=== PATIENT | female | born 1990 | race Caucasian/White ===

== ENCOUNTER → 2016-08-04 | Day surgery (SDC) | payer OTHER ==
[2016-07-29 09:50] LABS: BILIRUBIN NEGATIVE (NEGATIVE); BLOOD TRACE-INTACT (NEGATIVE); CLARITY CLOUDY (CLEAR); COLOR YELLOW (YELLOW); GLUCOSE NEGATIVE (NEGATIVE); KETONE NEGATIVE (NEGATIVE); LEUKO ESTERASE 2+ (NEGATIVE); NITRITE NEGATIVE (NEGATIVE); PH 5.5 (5.0-9.0); PROTEIN TRACE (NEGATIVE); SPECIFIC GRAVITY >= 1.030 (1.005-1.030); UROBILINOGEN 0.2 E.U./dl (0.2-1.0)
[2016-07-29 09:53] LABS: BASO # 0.1 10*3/uL (0.0-0.1); BASO % 0.9 % (0.0-1.0); EOS # 0.1 10*3/uL (0.0-0.4); HEMATOCRIT 41.2 % (37.0-47.0); HEMOGLOBIN 13.6 g/dl (12.0-16.0); LYMPH # 1.3 10*3/uL (1.3-4.4); LYMPH % 23.5 % (27.0-41.0); MEAN CELL VOLUME 91.8 fl (81.0-99.0); MEAN CORPUSCULAR HGB 30.3 pg (27.0-31.0); MONO # 0.8 10*3/uL (0.1-1.0); MONO % 14.8 % (3.0-9.0); NEUT # 3.3 10*3/uL (2.3-7.9); NEUT % 58.6 % (47.0-73.0); PLATELET COUNT AUTOMATED 293 10*3/uL (130-400); RED BLOOD COUNT 4.49 10*6/uL (4.10-5.10); RED CELL DISTRI WIDTH 12.7 % (0-14.5); WHITE BLOOD COUNT 5.6 10*3/uL (4.8-10.8)
[2016-07-29 10:12] LABS: BACTERIA 4+; EPITHELIAL CELLS 41-50; WBC 41-50 wbc/hpf (0-5)
[2016-07-29 10:18] LABS: ALBUMIN 3.6 gm/dl (3.1-4.5); BILIRUBIN, DIRECT < 0.1 mg/dL (0.0-0.2); BILIRUBIN, TOTAL 0.5 mg/dl (0.2-1.0); BUN 6 mg/dl (7-24); CARBON DIOXIDE 25 mmol/L (21-32); CHLORIDE 106 mmol/L (98-107); EST GLOM FILT AFRICAN AMERICAN > 60 ml/min; GLUCOSE 91 mg/dL (65-99); POTASSIUM 3.9 mmol/L (3.5-5.1); SGOT/AST 40 IU/L (3-35); SGPT/ALT 46 U/L (12-78); SODIUM 143 mmol/L (136-145); TOTAL PROTEIN 7.6 gm/dL (6.4-8.2)
[2016-07-29 10:20] LABS: ALKALINE PHOSPHATASE 90 U/L (45-117)
[2016-07-29 10:25] LABS: PROTHROMBIN TIME 10.2 SECONDS (9.0-12.4)
[2016-08-04] VITALS (9 sets, daily range): BP systolic 104–135; BP diastolic 51–66
[~2016-08-04] VITALS: Ht 154.9 cm; Wt 85.3 kg
[~2016-08-04] MED LIST: BACTRIM DS 8001 TA1 PO; BIRTH CONTROL; BIRTH CONTROL1 EAC1 PO; CIPRO500 MG PO; CLEOCIN150 MG PO; EMOQUETTE 0.151 TAB PO; FLAGYL500 MG PO; HYDROCODONE BIT1 T11 PO; MACROBID100 M1 PO; OMEPRAZOLE D/R20 MG PO; PYRIDIUM200 M1 PO; PYRIDIUM200 MG PO; SEPTRA DS 800 M1 TAB PO; SYNTHROID; SYNTHROID,LEVOTHROID PO; Synthroid,Levo25 MCG PO; TRAMADOL HCL50 MG PO; ULTRAM50 MG PO; [UNRECOGNIZED DRUG - OTHER] IL
--- NOTE | ~2016-08-04 | O ---
[place], [place] OPERATIVE NOTE NAME: [facility] [id number] UNIT #: [id number] ROOM: DOCTOR: CECILIO CHRISTIANSEN MD BIRTHDATE: [birth year] DOS: 08/04/2016 PREOPERATIVE DIAGNOSIS: Biliary dyskinesia. POSTOPERATIVE DIAGNOSIS: Biliary dyskinesia. PROCEDURE: Laparoscopic cholecystectomy. SURGEON: Cecilio Christiansen MD [employer] COORDINATOR: MS3. ANESTHESIA: General with endotracheal intubation. INDICATIONS: This is a 26-year-old lady with a history of symptomatic biliary dyskinesia, who is here for the above-mentioned procedure. The procedure and its complications were explained to the patient in detail preoperatively. Complications that were discussed included but were not limited to bleeding, infection, hematoma/seroma/abscess formation, prolonged postoperative pain, biloma formation and inadvertent injury to the common bile duct and incisional hernia formation. She agreed to proceed. DESCRIPTION OF PROCEDURE: After identifying the patient, the patient was brought to the operating suite and laid in the supine position. After induction of general anesthesia, timeout procedure was called and the parts were then painted and draped in the usual sterile fashion. An incision was made below the umbilicus in a transverse fashion of approximately 10 mm. The skin and the subcutaneous tissue were incised. The fascia was incised vertically and 2 stay sutures were taken with 0 Vicryl on either side. The peritoneum was opened and a 12 mm Kelsie port was introduced and a pneumoperitoneum was created. Under direct vision, an epigastric incision of 10 mm and two 5 mm incisions were made in the right upper quadrant and appropriate size ports were introduced. The gallbladder was then retracted superiorly and laterally. The cystic duct and the cystic artery were meticulously dissected; thereafter, each of these structures were clipped 3 times and cut between the first and the second clip. This was done after the critical view of safety was obtained and the triangle of Calot was identified. The gallbladder was then removed from the bed of the gallbladder with the help of electrocautery. It was placed in an EndoCatch bag and removed from the peritoneal cavity and sent for histopathological diagnosis. Thereafter, hemostasis was achieved in the liver bed, the irrigation fluid was sucked away. The right upper quadrant and the epigastric ports were then removed and there was no bleeding seen. The umbilical port was also removed and the 2 stay sutures were tied together and an additional 0 Vicryl stitch was taken to close the fascia. Thereafter, local anesthesia (1% plain lidocaine) was injected on all the 4 incisions and skin edges. The skin edges were then approximated with the help of 4-0 Vicryl in a subcuticular running fashion. Dressings were placed on all the 4 incisions and the patient was extubated and brought back to the recovery room in stable fashion. There were no complications. Dr. Cecilio Christiansen, the attending surgeon, was present throughout the operating case. [place], [place] OPERATIVE NOTE NAME: SACHI KRISHNAMURTHY UNIT #: [id number] ROOM: DOCTOR: CECILIO CHRISTIANSEN MD BIRTHDATE: [birth year] Cecilio Christiansen MD CM:OPRECORD:OPERATIVE NOTE [id number] CECILIO CHRISTIANSEN MD 08/04/16 0947 interface
== END | disposition home or self-care (01) ==
LOC: SDC 07-28 14:00
PROVIDERS: Surgery
DX: K80.10 Calculus of gallbladder with chronic cholecystitis without obstruction (principal); E07.9 Disorder of thyroid, unspecified

== ENCOUNTER 2016-11-09 11:33 | Emergency (ER) | payer OTHER ==
[~2016-11-09] VITALS: Wt 81.6 kg
[~2016-11-09 11:33] MED LIST changes: +NEXPLANON68 M2 SQ
[2016-11-09 11:35] VITALS: BP 120/75
== END 2016-11-09 12:29 | disposition home or self-care (01) ==
LOC: ED 11:33
DX: S61.212A Laceration without foreign body of right middle finger without damage to nail, initial encounter (principal); E03.9 Hypothyroidism, unspecified; Z79.899 Other long term (current) drug therapy; Z88.0 Allergy status to penicillin; Z88.8 Allergy status to other drugs, medicaments and biological substances; Z88.6 Allergy status to analgesic agent; W26.8XXA Contact with other sharp object(s), not elsewhere classified, initial encounter; Y93.89 Activity, other specified; Y92.098 Other place in other non-institutional residence as the place of occurrence of the external cause; Y99.9 Unspecified external cause status

== ENCOUNTER → 2018-12-18 | Outpatient (CLI) | payer OTHER | END | disposition home or self-care (01) | LOC: US 11-23 11:00 | DX: R10.2 Pelvic and perineal pain (principal) ==

== ENCOUNTER → 2019-04-18 | Outpatient (CLI) | payer OTHER ==
[2019-04-18 13:36] LABS: BASO # 0.1 10*3/uL (0.0-0.1); BASO % 0.6 % (0.0-1.0); EOS # 0.1 10*3/uL (0.0-0.4); EOS % 1.4 % (1.0-4.0); HEMATOCRIT 41.7 % (37.0-47.0); HEMOGLOBIN 13.6 g/dl (12.0-16.0); LYMPH # 1.9 10*3/uL (1.3-4.4); LYMPH % 24.9 % (27.0-41.0); MEAN CELL VOLUME 94.1 fl (81.0-99.0); MEAN CORPUSCULAR HGB 30.7 pg (27.0-31.0); MEAN CORPUSCULAR HGB CONC 32.6 g/dl (33.0-37.0); MEAN PLATELET VOLUME 10.3 fl (9.6-12.3); MONO # 0.8 10*3/uL (0.1-1.0); NEUT # 4.9 10*3/uL (2.3-7.9); NEUT % 62.8 % (47.0-73.0); PLATELET COUNT AUTOMATED 309 10*3/uL (130-400); RED BLOOD COUNT 4.43 10*6/uL (4.10-5.10); RED CELL DISTRI WIDTH 12.4 % (0-14.5); WHITE BLOOD COUNT 7.8 10*3/uL (4.8-10.8)
[2019-04-18 13:40] LABS: BILIRUBIN NEGATIVE (NEGATIVE); BLOOD NEGATIVE (NEGATIVE); CLARITY CLOUDY (CLEAR); COLOR YELLOW (YELLOW); GLUCOSE NEGATIVE (NEGATIVE); KETONE NEGATIVE (NEGATIVE); LEUKO ESTERASE 2+ (NEGATIVE); NITRITE NEGATIVE (NEGATIVE); SPECIFIC GRAVITY >= 1.030 (1.005-1.030); UROBILINOGEN 0.2 E.U./dl (0.2-1.0)
[2019-04-18 14:00] LABS: ALBUMIN 3.7 gm/dl (3.1-4.5); ALKALINE PHOSPHATASE 94 U/L (45-117); BUN 7 mg/dl (7-24); CHLORIDE 106 mmol/L (98-107); CHOLESTEROL 186 mg/dL (<200); GAMMA GLUTAMYL TRANSPEPTIDASE 51 U/L (5-55); HDL CHOLESTEROL 62 mg/dl (40-60); LDL CHOLESTEROL 108 mg/dL (9-159); POTASSIUM 3.5 mmol/L (3.5-5.1); SGOT/AST 35 IU/L (3-35); SGPT/ALT 60 U/L (12-78); SODIUM 139 mmol/L (136-145); T3 UPTAKE 32 % (31-39); THYROXINE (T4) TOTAL 8.6 ug/dl (4.8-13.9); TOTAL IRON BINDING CAPACITY 315 ug/dl (250-450); TOTAL PROTEIN 7.7 gm/dL (6.4-8.2); TRIGLYCERIDES 79 mg/dl (<150); URIC ACID 4.1 mg/dL (2.6-6.0); VLDL CHOLESTEROL 16 mg/dL (6-40)
[2019-04-18 14:05] LABS: EPITHELIAL CELLS TNTC
[2019-04-18 14:06] LABS: BACTERIA 2+; WBC 21-30 wbc/hpf (0-5)
[2019-04-18 14:09] LABS: B-hCG (QUALITATIVE) NEGATIVE (NEGATIVE); IRON 78 ug/dL (50-170)
[2019-04-18 14:10] LABS: BETA-HCG, QUANT < 1.0 mIU/mL (1-3)
[2019-04-18 14:32] LABS: FERRITIN 109.6 ng/mL (10.0-291.0); VITAMIN D, 25-HYDROXY 28.4 ng/mL (30-100)
[2019-04-19 07:06] LABS: DHEA SULFATE 158.9 ug/dL (84.8-378.0); FOLLICLE STIMULATING HORMONE 5.5 mIU/mL (.); PROGESTERONE 004317 0.2 ng/mL (.); PROLACTIN 004465 7.9 ng/mL (4.8-23.3); SEX HORMONE BINDING GLOBULIN 18.2 nmol/L (24.6-122.0)
[2019-04-19 08:08] LABS: RHEUMATOID ARTHRITIS FACTOR 10.5 IU/mL (0.0-13.9)
[2019-04-19 15:10] LABS: ANTI-DSDNA ANTIBODIES 096339 <1 IU/mL (0-9)
[2019-04-20 04:06] LABS: TESTOSTERONE FREE, (DIRECT) 1.7 pg/mL (0.0-4.2)
[2019-04-20 15:09] LABS: INSULIN-LIKE GROWTH FACTOR-1 146 ng/mL (78-270)
[2019-04-24 14:11] LABS: DEHYDROEPIANDROSTERONE 004100 122 ng/dL (31-701)
== END | disposition home or self-care (01) ==
LOC: LAB 12:44
PROVIDERS: Family Medicine
DX: E55.9 Vitamin D deficiency, unspecified (principal); R79.89 Other specified abnormal findings of blood chemistry; R53.83 Other fatigue

== ENCOUNTER → 2019-05-17 | Outpatient (CLI) | payer OTHER | END | disposition home or self-care (01) | LOC: US 10:00 | DX: R10.84 Generalized abdominal pain (principal); R10.2 Pelvic and perineal pain ==

== ENCOUNTER → 2019-12-26 | Outpatient (CLI) | payer OTHER | END | disposition home or self-care (01) | LOC: US 09:30 | DX: R10.31 Right lower quadrant pain (principal) ==

== ENCOUNTER → 2020-05-04 | Outpatient (CLI) | payer OTHER | END | disposition home or self-care (01) | LOC: COVID19 09:37 | PROVIDERS: ATTEND Family Medicine | DX: Z20.828 Contact with and (suspected) exposure to other viral communicable diseases (principal) ==

== ENCOUNTER → 2021-06-08 | Outpatient (CLI) | payer OTHER | END | disposition home or self-care (01) | LOC: MAMMO 13:14 | PROVIDERS: ATTEND Family Medicine | DX: N63.0 Unspecified lump in unspecified breast (principal); N64.59 Other signs and symptoms in breast ==

== ENCOUNTER 2021-09-24 14:56 | Emergency (ER) | payer OTHER ==
[~2021-09-24] VITALS: Wt 86.2 kg
[2021-09-24 15:06] VITALS: BP 126/78
== END 2021-09-24 15:51 | disposition home or self-care (01) ==
LOC: ED 14:56
DX: S30.861A Insect bite (nonvenomous) of abdominal wall, initial encounter (principal); Z88.0 Allergy status to penicillin; Z88.8 Allergy status to other drugs, medicaments and biological substances; Z88.1 Allergy status to other antibiotic agents; Z79.899 Other long term (current) drug therapy; W57.XXXA Bitten or stung by nonvenomous insect and other nonvenomous arthropods, initial encounter; Y93.89 Activity, other specified; Y92.89 Other specified places as the place of occurrence of the external cause; Y99.8 Other external cause status

== ENCOUNTER → 2022-06-01 | Outpatient (CLI) | payer OTHER ==
[2022-06-01 12:53] LABS: HEMATOCRIT 41.5 % (37.0-47.0); MEAN CORPUSCULAR HGB 30.8 pg (27.0-31.0); MEAN CORPUSCULAR HGB CONC 33.5 g/dl (33.0-37.0); MEAN PLATELET VOLUME 10.4 fl (9.6-12.3); RED BLOOD COUNT 4.51 10*6/uL (4.10-5.10); RED CELL DISTRI WIDTH 12.4 % (0-14.5); WHITE BLOOD COUNT 6.3 10*3/uL (4.8-10.8)
[2022-06-01 13:26] LABS: ALKALINE PHOSPHATASE 73 U/L (46-116); BUN 8 mg/dl (9-23); CHLORIDE 107 mmol/L (98-107); CHOLESTEROL 152 mg/dL (<200); FREE T4 1.38 ng/dl (0.89-1.76); LDL CHOLESTEROL 91 mg/dL (9-159); POTASSIUM 3.8 mmol/L (3.4-5.1); SGPT/ALT 20 U/L (10-49); THYROID STIM HORMONE (HS) 1.937 uIU/ml (0.550-4.780); TOTAL PROTEIN 7.4 gm/dL (6.0-8.0); TRIGLYCERIDES 72 mg/dl (<150)
== END | disposition home or self-care (01) ==
LOC: LAB 12:15
PROVIDERS: ATTEND Family Medicine
DX: Z00.00 Encounter for general adult medical examination without abnormal findings (principal); E74.9 Disorder of carbohydrate metabolism, unspecified; R53.83 Other fatigue; R63.5 Abnormal weight gain; M79.672 Pain in left foot; M79.671 Pain in right foot

== ENCOUNTER 2022-09-14 11:11 | Emergency (ER) | payer OTHER ==
[~2022-09-14] VITALS: Wt 81.6 kg
[2022-09-14 11:21] VITALS: BP 127/79
[2022-09-14] MEDS ORDERED: HYDROCORTISON28.4 G6 T (11:51)
== END 2022-09-14 12:14 | disposition home or self-care (01) ==
LOC: ED 11:11
DX: L29.9 Pruritus, unspecified (principal); Z88.0 Allergy status to penicillin; Z88.8 Allergy status to other drugs, medicaments and biological substances; Z98.890 Other specified postprocedural states

== ENCOUNTER 2023-04-05 13:39 | Emergency (ER) | payer OTHER ==
[~2023-04-05] VITALS: Ht 154.9 cm; Wt 81.2 kg
[~2023-04-05 13:39] MED LIST changes: +HYDROCORTISON28.4 G6 T
[2023-04-05 13:50] VITALS: BP 138/85
== END 2023-04-05 16:41 | disposition left against medical advice (07) ==
LOC: ED 13:39
DX: R25.2 Cramp and spasm (principal); Z88.0 Allergy status to penicillin; Z88.8 Allergy status to other drugs, medicaments and biological substances; Z53.21 Procedure and treatment not carried out due to patient leaving prior to being seen by health care provider

== ENCOUNTER → 2023-04-12 | Outpatient (CLI) | payer OTHER | END | disposition home or self-care (01) | LOC: US 14:42 | PROVIDERS: ATTEND Nurse Practitioner Women's Health | DX: N92.6 Irregular menstruation, unspecified (principal) ==

== ENCOUNTER → 2023-08-10 | Outpatient (CLI) | payer OTHER | END | disposition home or self-care (01) | LOC: US 12:30 | PROVIDERS: ATTEND Nurse Practitioner Women's Health | DX: N83.291 Other ovarian cyst, right side (principal) ==

== ENCOUNTER → 2023-11-03 | Outpatient (CLI) | payer OTHER | LOC: US 01:36 | PROVIDERS: ATTEND Nurse Practitioner Family | DX: M79.89 Other specified soft tissue disorders (principal) ==

== ENCOUNTER 2024-02-29 10:24 | Emergency (ER) | payer OTHER ==
[~2024-02-29] VITALS: Ht 154.9 cm; Wt 83.0 kg
[2024-02-29 10:35] VITALS: BP 143/110
[2024-02-29 11:02] LABS: BILIRUBIN 1+ (Negative); BLOOD 3+ (Negative); CLARITY Clear (Clear); COLOR Dark Yellow (Yellow); GLUCOSE Negative (Negative); KETONE Trace (Negative); LEUKO ESTERASE 2+ (Negative); NITRITE Negative (Negative); SPECIFIC GRAVITY 1.025 (1.001-1.030)
[2024-02-29 11:15] LABS: BACTERIA 3+; MUCOUS 1+; RBC TNTC rbc/hpf (0-2); WBC 16-20 wbc/hpf (0-5)
[2024-02-29] MEDS ORDERED: MACROBID100 M1 PO (11:25)
== END 2024-02-29 11:45 | disposition home or self-care (01) ==
LOC: ED 10:24
PROVIDERS: Internal Medicine
DX: O23.32 Infections of other parts of urinary tract in pregnancy, second trimester (principal); N39.0 Urinary tract infection, site not specified; Z88.0 Allergy status to penicillin; Z88.8 Allergy status to other drugs, medicaments and biological substances; Z98.890 Other specified postprocedural states; Z3A.20 20 weeks gestation of pregnancy

== ENCOUNTER 2024-04-23 12:18 | Emergency (ER) | payer OTHER ==
[~2024-04-23] VITALS: Wt 81.6 kg
[2024-04-23 12:25] VITALS: BP 133/78
[2024-04-23] MEDS ORDERED: IOHEXOL 300 MG/ML 100 ML VIAL IV ONE (12:45)
[2024-04-23 12:57] LABS: BASO % 0.4 % (0.0-1.0); EOS # 0.1 10*3/uL (0.0-0.4); EOS % 0.7 % (1.0-4.0); HEMATOCRIT 39.4 % (37.0-47.0); MEAN CELL VOLUME 89.3 fl (81.0-99.0); MEAN CORPUSCULAR HGB 28.8 pg (27.0-31.0); MEAN CORPUSCULAR HGB CONC 32.2 g/dl (33.0-37.0); MONO # 0.7 10*3/uL (0.1-1.0); MONO % 6.4 % (3.0-9.0); NEUT # 7.6 10*3/uL (2.3-7.9); NEUT % 74.8 % (47.0-73.0); PLATELET COUNT AUTOMATED 368 10*3/uL (130-400); RED BLOOD COUNT 4.41 10*6/uL (4.10-5.10); RED CELL DISTRI WIDTH 13.1 % (0-14.5); WHITE BLOOD COUNT 10.1 10*3/uL (4.8-10.8)
[2024-04-23] MEDS ORDERED: Ketorolac Tromethamine 15 MG/ML VIAL IV ONE (13:15)
[2024-04-23] MEDS ORDERED: Ondansetron Hydrochloride 4 MG/2 ML VIAL IV ONE (13:15)
[2024-04-23 13:24] LABS: ALKALINE PHOSPHATASE 96 U/L (46-116); BUN 8 mg/dl (9-23); CHLORIDE 106 mmol/L (98-107); LIPASE 34 U/L (12-53); POTASSIUM 3.8 mmol/L (3.4-5.1); SGPT/ALT 20 U/L (5-49); TOTAL PROTEIN 7.6 gm/dL (6.0-8.0)
[2024-04-23 13:29] LABS: BILIRUBIN 1+ (Negative); BLOOD 2+ (Negative); CLARITY Turbid (Clear); GLUCOSE Negative (Negative); KETONE Negative (Negative); LEUKO ESTERASE 2+ (Negative); NITRITE Positive (Negative); SPECIFIC GRAVITY >= 1.030 (1.001-1.030); UROBILINOGEN 0.2 E.U./dl (0.0-1.0)
[2024-04-23 13:38] LABS: COLOR Red (Yellow)
[2024-04-23 13:52] LABS: RBC TNTC rbc/hpf (0-2)
[2024-04-23] MEDS ORDERED: Clindamycin Phosphate 50 ML IV ONE (13:55)
[2024-04-23] MEDS ORDERED: MORPHINE Sulfate 2 MG/ML SYR IV ONE (14:25)
[2024-04-23] MEDS ORDERED: PERCOCET 5-3251 EACH PO (15:05)
[2024-04-23] MEDS ORDERED: FLOMAX0.4 MG PO (15:06)
[2024-04-23] MEDS ORDERED: CIPRO500 MG PO (15:06)
== END 2024-04-23 15:23 | disposition home or self-care (01) ==
LOC: ED 12:18
PROVIDERS: Nurse Practitioner
DX: N13.2 Hydronephrosis with renal and ureteral calculous obstruction (principal); N39.0 Urinary tract infection, site not specified; Z88.0 Allergy status to penicillin; Z88.8 Allergy status to other drugs, medicaments and biological substances; Z88.1 Allergy status to other antibiotic agents; Z79.2 Long term (current) use of antibiotics

== ENCOUNTER 2024-05-23 20:59 | Emergency (ER) | payer OTHER ==
[~2024-05-23] VITALS: Ht 154.9 cm; Wt 77.1 kg
[~2024-05-23 20:59] MED LIST changes: +FLOMAX0.4 MG PO; +PERCOCET 5-3251 EACH PO
[2024-05-23 21:12] VITALS: BP 133/78
[2024-05-23 21:25] LABS: BILIRUBIN Negative (Negative); BLOOD 3+ (Negative); CLARITY Clear (Clear); COLOR Yellow (Yellow); GLUCOSE Negative (Negative); KETONE 3+ (Negative); LEUKO ESTERASE 1+ (Negative); NITRITE Negative (Negative); PH 6.5 (4.5-8.0); SPECIFIC GRAVITY 1.025 (1.001-1.030); UROBILINOGEN 0.2 E.U./dl (0.0-1.0)
[2024-05-23] MEDS ORDERED: Ondansetron Hydrochloride 4 MG/2 ML VIAL IV ONE (21:30)
[2024-05-23] MEDS ORDERED: SODIUM CHLORIDE 0.9% 1,000 ML IV ONE (21:30)
[2024-05-23 21:32] LABS: BACTERIA 1+; RBC 41-50 rbc/hpf (0-2)
[2024-05-23 22:05] LABS: BASO % 0.2 % (0.0-1.0); HEMATOCRIT 36.3 % (37.0-47.0); MEAN CELL VOLUME 86.2 fl (81.0-99.0); MEAN CORPUSCULAR HGB 27.8 pg (27.0-31.0); MEAN CORPUSCULAR HGB CONC 32.2 g/dl (33.0-37.0); MEAN PLATELET VOLUME 9.8 fl (9.6-12.3); MONO % 7.3 % (3.0-9.0); NEUT # 11.9 10*3/uL (2.3-7.9); NEUT % 85.4 % (47.0-73.0); PLATELET COUNT AUTOMATED 316 10*3/uL (130-400); RED BLOOD COUNT 4.21 10*6/uL (4.10-5.10); RED CELL DISTRI WIDTH 14.3 % (0-14.5); WHITE BLOOD COUNT 13.9 10*3/uL (4.8-10.8)
[2024-05-23 22:27] LABS: ALKALINE PHOSPHATASE 85 U/L (46-116); BUN 8 mg/dl (9-23); CHLORIDE 106 mmol/L (98-107); POTASSIUM 3.9 mmol/L (3.4-5.1); SGPT/ALT 17 U/L (5-49); TOTAL PROTEIN 7.5 gm/dL (6.0-8.0)
[2024-05-23] MEDS ORDERED: Ceftriaxone Sodium 1 GM/10 ML SYR IV ONE (23:50)
[2024-05-24] MEDS ORDERED: MACROBID100 M1 PO (02:43)
== END 2024-05-24 00:20 | disposition left against medical advice (07) ==
LOC: ED 20:59
PROVIDERS: Emergency Medicine; Nurse Practitioner
DX: N13.2 Hydronephrosis with renal and ureteral calculous obstruction (principal); R11.2 Nausea with vomiting, unspecified; Z53.29 Procedure and treatment not carried out because of patient's decision for other reasons; Z87.442 Personal history of urinary calculi; Z88.0 Allergy status to penicillin; Z88.8 Allergy status to other drugs, medicaments and biological substances; Z98.890 Other specified postprocedural states

== ENCOUNTER → 2024-07-09 | Outpatient (CLI) | payer OTHER | END | disposition home or self-care (01) | LOC: LAB 09:39 | PROVIDERS: ATTEND Internal Medicine | DX: E03.9 Hypothyroidism, unspecified (principal) ==

== ENCOUNTER → 2024-12-25 | Outpatient (CLI) | payer OTHER | END | disposition home or self-care (01) | LOC: RESCLI 12:41 | PROVIDERS: ATTEND Internal Medicine | DX: M79.671 Pain in right foot (principal); K92.1 Melena ==